=== PATIENT | female | born 1960 | race Caucasian/White ===

== ENCOUNTER → 2025-03-11 | Day surgery (SDC) | payer OTHER ==
[~2025-03-11] MED LIST: AMLODIPINE BESY10 MG PO; LOSARTAN-HCTZ1 EAC2 PO; SIMVASTATIN20 MG PO
[2025-03-11] MEDS: LACTATED RINGER'S 1,000 ML ONE (06:06)
[2025-03-11 08:17] VITALS: TEMP 97.5
[2025-03-11 08:30] VITALS: BP 123/69; PULSE 72; RESP 16; O2SAT 96
== END | disposition home or self-care (01) ==
LOC: OR 05:23
PROVIDERS: ATTEND Internal Medicine Gastroenterology
DX: R19.5 Other fecal abnormalities (principal); D12.5 Benign neoplasm of sigmoid colon; D12.3 Benign neoplasm of transverse colon; K63.5 Polyp of colon; K57.30 Diverticulosis of large intestine without perforation or abscess without bleeding; Z80.0 Family history of malignant neoplasm of digestive organs; I10 Essential (primary) hypertension; E78.5 Hyperlipidemia, unspecified; E66.01 Morbid (severe) obesity due to excess calories; Z68.43 Body mass index [BMI] 50.0-59.9, adult; M17.12 Unilateral primary osteoarthritis, left knee; Z01.810 Encounter for preprocedural cardiovascular examination; Z79.899 Other long term (current) drug therapy
CPT/HCPCS: 45381; 45385; 88305; 93005; J7121; 45378